=== PATIENT | male | born 1970 | race Caucasian/White ===

== ENCOUNTER 2019-04-24 08:04 | Emergency (ER) | payer MEDICAID, OTHER ==
[~2019-04-24] VITALS: Ht 170.2 cm; Wt 71.8 kg
[2019-04-24 08:08] VITALS: BP 133/84
--- NOTE | 2019-04-24 08:38 | NUR ---
PT PRESENTS FOR RECHECK OF WOUND ON RIGHT MIDDLE FINGER. MD ROUNDED AND EXPRESSED APPROX 3CC OF PURULENT YELLOW DRAINAGE THAT IS MALODEROUS. 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 WOUND CARE EDUCATION PROVIDED TO PT, PT VERBALIZED UNDERSTANDING.
[2019-04-24] MEDS ORDERED: SULFAMETH./TRIMETHOPRIM DS 800MG/160MG TABLET PO ONE (09:00)
[2019-04-24] MEDS ORDERED: CEPHALEXIN 500 MG CAPSULE PO ONE (09:00)
[2019-04-24] MEDS ORDERED: CEPHALEXIN 500 MG CAPSULE ONE (09:01)
[2019-04-24] MEDS ORDERED: SULFAMETH./TRIMETHOPRIM DS 800MG/160MG TABLET ONE (09:01)
== END 2019-04-24 09:10 | disposition home or self-care (01) ==
LOC: ED 08:57
DX: L03.012 Cellulitis of left finger (principal); F17.200 Nicotine dependence, unspecified, uncomplicated
CPT/HCPCS: 99283

== ENCOUNTER 2019-04-25 08:29 | Emergency (ER) | payer MEDICAID ==
[~2019-04-25] VITALS: Ht 170.2 cm; Wt 71.0 kg
[2019-04-25 08:34] VITALS: BP 115/74
== END 2019-04-25 09:45 | disposition home or self-care (01) ==
LOC: ED 08:32
DX: L03.011 Cellulitis of right finger (principal)
CPT/HCPCS: 11740; 99283